=== PATIENT | male | born 1940 | race Caucasian/White ===

== ENCOUNTER → 2018-12-07 | Outpatient (CLI) | payer MEDICARE, OTHER ==
[~2018-12-07] MED LIST: AMITRIPTYLINE H25 MG PO; CARVEDILOL3.125 MG PO; COZAAR25 MG; GLUCOPHAGE500 MG PO; GLUCOTROL XL5 MG PO; KLOR-CON M2020 MEQ PO; LASIX40 MG PO; LYRICA200 MG PO; TRICOR145 MG PO; VITAMIN B-121000 MC1; WARFARIN SODIU2.5 MG PO; ZESTORETIC 20-1 EACH PO
[2018-12-07 14:34] LABS: BASOPHILS % 0.4 % (0.0-1.0); EOSINOPHILS # (AUTO) 0.3 (0.0-0.4); EOSINOPHILS % 5.5 % (0.0-6.0); HEMATOCRIT 34.7 % (38.2-49.6); HEMOGLOBIN 12.2 g/dL (14.0-18.0); LYMPHOCYTES # (AUTO) 1.1 (1.0-3.2); LYMPHOCYTES % 21.1 % (18.0-39.1); MEAN CORPUSCULAR HEMOGLOBIN 29.7 pg (28-32); MEAN CORPUSCULAR HGB CONC 35.2 g/dL (31-35); MEAN CORPUSCULAR VOLUME 84.4 fL (81-99); MONOCYTES # (AUTO) 0.6 (0.2-0.8); MONOCYTES % 11.3 % (4.4-11.3); NEUTROPHILS # (AUTO) 3.3 (2.1-6.9); NEUTROPHILS % 61.3 % (38.7-80.0); PLATELET COUNT 181 x10e3/uL (140-360); RED BLOOD COUNT 4.11 x10e6/uL (4.3-5.7); RED CELL DISTRIBUTION WIDTH 14.4 % (11.7-14.4)
== END ==
LOC: RAD 05:00 → EDSTATUS 12-15 11:00
PROVIDERS: ATTEND Internal Medicine
DX: R10.9 Unspecified abdominal pain (principal); K59.00 Constipation, unspecified; R14.0 Abdominal distension (gaseous); K21.9 Gastro-esophageal reflux disease without esophagitis
CPT/HCPCS: 36415; 85025; 93005

== ENCOUNTER → 2019-01-12 | Day surgery (SDC) | payer MEDICARE, OTHER ==
[~2019-01-12] MED LIST changes: +PROPOFOL IV EMULSION 10 MG/ML 20 ML VIAL ONE
--- OUTSIDE RECORDS SUMMARY | 2019-01-12 08:13 | XMS REPORT ---
Author [facility] Address Unknown Phone Unavailable Care Team Providers Care Scientific Investigator Name Role Phone Unavailable Unavailable Payers Payer Name Policy Type Policy Number Effective Date Expiration Date Problems This patient has no known problems. Allergies, Adverse Reactions, Alerts Allergy Name Allergy Type Status Severity Reaction(s) Onset Date Inactive Date Treating Clinician Comments hydrocodone bit DA Active SV 2010-08-13 00:00:00 Sulfa (Sulfonamide Antibiotics) DA Active SV 2010-08-13 00:00:00 acetaminophen DA Active SV 2010-08-13 00:00:00 penicillin G DA Active U 2005-07-18 00:00:00 No Known Contrast Allergies DA Active U 2005-07-18 00:00:00 No Known Food Allergies DA Active U 2005-07-18 00:00:00 No Known Other Allergies DA Active U 2005-07-18 00:00:00 PENICILLIN DA Active U 2005-07-18 00:00:00 Medications This patient has no known medications.
[2019-01-12 10:06] LABS: INR 1.1; PARTIAL THROMBOPLASTIN TIME 31.3 seconds (23.8-35.5); PROTHROMBIN TIME 14.7 seconds (11.9-14.5)
[2019-01-12 11:35] VITALS: BP 159/83
== END | disposition home or self-care (01) ==
LOC: OR 08:07
PROVIDERS: ATTEND Internal Medicine
DX: K59.00 Constipation, unspecified (principal); K21.9 Gastro-esophageal reflux disease without esophagitis; I10 Essential (primary) hypertension; Z88.6 Allergy status to analgesic agent; Z88.0 Allergy status to penicillin; G47.33 Obstructive sleep apnea (adult) (pediatric); E11.9 Type 2 diabetes mellitus without complications; Z79.01 Long term (current) use of anticoagulants; Z79.84 Long term (current) use of oral hypoglycemic drugs
CPT/HCPCS: 36415; 45380; 82948; 85610; 85730; 88305; J2704; 45378